=== PATIENT | female | born 1985 | race Caucasian/White ===

== ENCOUNTER 2022-07-17 08:50 | Outpatient (CLI) | payer OTHER, SELFPAY | END 2022-07-17 08:51 | disposition home or self-care (01) | PROVIDERS: PCP Physician Assistant Medical; Visit Provider Physician Assistant | DX: E66.9 Obesity, unspecified (principal) | CPT/HCPCS: 80053; 80061; 84443 ==

== ENCOUNTER 2022-10-26 19:19 | Emergency (ER) | payer OTHER, SELFPAY ==
[2022-10-26 19:27] VITALS: BP 127/86; PULSE 99; RESP 16; TEMP 36.5; O2SAT 99; BMI 30.9
--- NOTE | 2022-10-26 19:49 | ED.GENADULT ---
HPI - General Adult General Date Seen: 10/26/22 Chief complaint: Back Injury/Pain Stated complaint: fell 1 month ago, still having back pain Time Seen by Provider: 10/26/22 19:21 Source: patient Mode of arrival: ambulatory Limitations: no limitations History of Present Illness HPI narrative: Patient is a 37 year female with no pertinent medical problems presenting to emergency department for low back pain. She states 1 month ago she jumped from a diving board and a noncemented constant low back pain. She had CT scan done at that time showing indeterminate fracture. I told her to follow-up if she continues to have low back pain. She states she still feels a lot of low back pain that is mostly paraspinal. No midline pain. She came in wanting an MRI done of her back an EEG because she is having headaches and blurry vision. The headaches in vision issues 7 going on for over a year but she notices the vision issues have gotten worse since she hurt her back. She has not been taking anything for pain. Denies lightheadedness, dizziness, saddle anesthesia, loss of bowel or bladder control. Patient is able to walk to the bed without issues and not have too much trouble moving around in bed. Related Data Previous Rx's Medication Instructions Recorded etonogestrel 0.12 mg-ethinyl 1 vag ring vaginal Q4W #3 ea 10/18/22 estradiol 0.015 mg/24 hr vaginal ring (NuvaRing) cyclobenzaprine 10 mg tablet 10 mg PO TID #15 tabs 10/26/22 Allergies Allergy/AdvReac Type Severity Reaction Status Date / Time No Known Drug Allergies Allergy Verified 07/21/22 14:43 Review of Systems Narrative: Negative unless otherwise stated in HPI PFSH PFSH Medical History (Updated 10/26/22 @ 19:50 by Joel Ramírez DO) Hyperlipidemia ?E78.5 - Hyperlipidemia, unspecified (ICD-10) History of vaginal delivery History of use of contraceptive intrauterine device (IUD) ?Z92.0 - Personal history of contraception (ICD-10) Fatigue ?R53.83 - Other fatigue (ICD-10) Encounter for well woman exam with routine gynecological exam ?Z01.419 - Encounter for gynecological examination (general) (routine) without abnormal findings (ICD-10) History of urethral cyst ?Z87.448 - Personal history of other diseases of urinary system (ICD-10) History of basal cell carcinoma ?Z85.828 - Personal history of other malignant neoplasm of skin (ICD-10) History of abnormal cervical Pap smear ?Z87.42 - Personal history of other diseases of the female genital tract (ICD-10) Surgical History (Updated 07/17/22 @ 08:17 by Zainab Benjamin PA-C) History of wisdom tooth extraction ?K08.409 - Partial loss of teeth, unspecified cause, unspecified class (ICD-10) History of hand surgery ?Z98.890 - Other specified postprocedural states (ICD-10) History of D&C ?Z98.890 - Other specified postprocedural states (ICD-10) Family History (Updated 07/21/22 @ 14:46 by Pat Arcos) Father Diabetes Family/Other High cholesterol High blood pressure Thyroid disease Social History Smoking Status: Never smoker Exam Narrative: Exam Narrative: Const: Well-nourished, Well-developed, in mild distress Eyes: PERRL, no conjunctival injection, and symmetrical lids HENT: Atraumatic external nose and ears. Moist mucous membranes. MSK:Extremities w/o deformity, Normal Active ROM. No midline back tenderness. Tenderness noted to the left paraspinal muscles of the low back around L4 Skin: Warm, Dry. No rashes or lesions. Neuro: Normal Muscle tone, No focal neurological deficits. Psych: Awake, Alert, & Oriented x3. Appropriate mood and affect. Const: Vital Signs, click to edit/add: Vital Signs - 24 hr 10/26/22 19:27 Temperature 97.7 F Pulse Rate [Pulse Oximeter] 99 Respiratory Rate 16 Blood Pressure [Ri ght Upper Arm] 127/86 Pulse Oximetry 99 Oxygen Delivery Me thod Room Air Course Vital Signs Vital signs: Initial Vital Signs Temperature 97.7 F 10/26/22 19:27 Temperature Source Temporal Artery Scan 10/26/22 19:27 Pulse Rate 99 10/26/22 19:27 Respiratory Rate 16 10/26/22 19:27 Blood Pressure 127/86 10/26/22 19:27 Blood Pressure Mean 99 10/26/22 19:27 Blood Pressure Position Sitting 10/26/22 19:27 Pulse Oximetry 99 10/26/22 19:27 Oxygen Delivery Method Room Air 10/26/22 19:27 Vital Signs Temperature 97.7 F 10/26/22 19:27 Pulse Rate 99 10/26/22 19:27 Respiratory Rate 16 10/26/22 19:27 Blood Pressure 127/86 10/26/22 19:27 Pulse Oximetry 99 10/26/22 19:27 Oxygen Delivery Method Room Air 10/26/22 19:27 Temperature 97.7 F 10/26/22 19:27 Pulse Rate 99 10/26/22 19:27 Respiratory Rate 16 10/26/22 19:27 Blood Pressure 127/86 10/26/22 19:27 Pulse Oximetry 99 10/26/22 19:27 Oxygen Delivery Method Room Air 10/26/22 19:27 Medical Decision Making MDM Narrative Medical decision making narrative: Patient is a 37-year-old female presenting to the emergency department for low back pain. Symptoms have been gone for the past month since he jumped from a diving board. Pain is all paraspinal with no midline tenderness. Dull on the left side. Left side of the back does feel more tense than the right side. Patient once a MRI but I informed her we are unable to do that this time as she is not having red flag symptoms and this is not an emergent MRI. She is not having any red flag symptoms and cauda equina appears unlikely at this time. I symptoms of paraspinal and she is moving around in bed easily. She has not been taking any pain medication at home. She was also wants a EEG but I informed her we are unable to do that and her symptoms have been going on chronically and she can follow-up outpatient for that also. We will give her Flexeril to try and help with pain. She is agreeable follow-up neurology and the [facility]. Discharge Plan Discharge Clinical Impression: Lumbar radiculopathy Patient Disposition: Home, Self-Care Condition: Stable Instructions: Lower Back Exercises (ED) Additional Instructions: If you would like, follow-up with [facility] or another Neurology Clinic. We are not affiliated with any specific neurologist, you will have to call and make an appointment. The scheduling phone number listed on the website for [facility] is [phone]. You can follow-up with the [facility] for your low back pain. The appointment line is [phone]. Return for new or worsening symptoms. Take Tylenol ibuprofen for pain. Prescriptions: New cyclobenzaprine 10 mg tablet 10 mg PO TID Qty: 15 0RF No Action etonogestrel-ethinyl estradiol [NuvaRing] 0.12-0.015 mg/24 hr ring 1 vag ring vaginal Q4W Qty: 3 3RF Rx Instructions: leave in place for 3 weeks of a 4-week cycle Follow Up/Referrals: Katey Noonan PA-C [Primary Care Provider] - Stand Alone Forms: [facility] Info Instructions
== END 2022-10-26 20:04 | disposition home or self-care (01) ==
LOC: ED 20:02
PROVIDERS: Emergency Provider Student in an Organized Health Care Education/Training Program; PCP Physician Assistant Medical
DX: M54.16 Radiculopathy, lumbar region (principal)
CPT/HCPCS: 99282; 99283

== ENCOUNTER 2023-05-03 21:15 | Outpatient (REF) | payer OTHER, SELFPAY ==
[2023-05-03 21:32] LABS: Basophils Absolute Auto 0.11 K/uL (0.00-0.30); Basophils Percent Auto 1.1 % (0.0-3.0); Eosinophils Percent Auto 11.5 % (0.0-7.0); Hemoglobin* 13.5 gm/dL (12.0-16.0); Immature Granulocytes Abs Auto 0.05 K/uL (0.00-0.30); Immature Granulocytes Pct Auto 0.5 %; Lymphocytes Absolute Auto 2.37 K/uL (0.90-2.90); Lymphocytes Percent Auto 24.1 % (20-44); Mean Corpuscular HGB Conc 33 gm/dL (32-36); Mean Corpuscular Hemoglobin 31 pg (26-34); Mean Corpuscular Volume 93 fL (80-100); Monocytes Percent Auto 5.7 % (0.0-11.0); Neutrophils Absolute Auto 5.61 K/uL (1.7-7.0); Neutrophils Percent Auto 57.1 % (42.0-72.0); Platelet Count* 422 K/uL (140-440); RDW Coefficient of Variation % 12.6 % (11.5-15.5); Red Blood Count 4.43 m/uL (4.00-5.20); White Blood Count* 9.83 K/uL (4.50-11.00)
[2023-05-03 21:50] LABS: Slide Review Reflex No
[2023-05-03 21:59] LABS: Hemoglobin A1C* 5.1 % (0-5.6)
[2023-05-03 22:01] LABS: Albumin* 4.3 g/dL (3.3-5.0); Chloride* 106 mmol/L (96-114)
[2023-05-03 22:02] LABS: Potassium* 3.7 mmol/L (3.6-5.1); Sodium* 138 mmol/L (135-149)
[2023-05-03 22:04] LABS: Alanine Aminotransferase* 22 U/L (4-35); Alkaline Phosphatase* 72 U/L (40-150); Anion Gap 8 mEq/L (7-15); Aspartate Amino Transferase* 20 U/L (12-35); Bilirubin Total* 0.3 mg/dL (0.1-1.5); Blood Urea Nitrogen* 12 mg/dL (5-24); Carbon Dioxide* 24 mmol/L (20-32); Cholesterol* 205 mg/dL (90-199); Creatinine* 0.5 mg/dL (0.5-1.5); Estimated Glomerular Filt Rate 123 ml/min; Glucose* 93 mg/dL (60-115); Total Protein* 6.8 g/dL (6.0-8.3)
[2023-05-03 22:05] LABS: Calcium* 9.3 mg/dL (8.4-10.6); HDL Cholesterol* 77 mg/dL (>=50); LDL Cholesterol Calculated 96 mg/dL (<100); Triglycerides* 159 mg/dL (40-149)
[2023-05-03 22:21] LABS: Thyroid Stimulating Hormone* 0.986 uIU/mL (0.270-4.20)
[2023-05-03 22:40] LABS: Vitamin B12* 816 pg/mL (243-894)
[2023-05-05 08:55] LABS: Folate, Serum 11.5 ng/mL (>=5.9)
== END 2023-05-03 21:16 | disposition home or self-care (01) ==
LOC: NPINS 21:15
PROVIDERS: PCP Physician Assistant Medical; Visit Provider Physician Assistant Medical
DX: E66.3 Overweight (principal); E34.9 Endocrine disorder, unspecified; E56.9 Vitamin deficiency, unspecified
CPT/HCPCS: 80053; 80061; 82607; 82746; 83036; 84443; 85025

== ENCOUNTER 2023-11-05 09:17 | Outpatient (CLI) | payer OTHER, SELFPAY ==
[2023-11-10 09:08] LABS: HPV Source Cervix; HPV, High Risk by TMA Not Detected
== END 2023-11-05 09:18 | disposition home or self-care (01) ==
PROVIDERS: PCP Physician Assistant Medical; Visit Provider Physician Assistant
DX: Z12.4 Encounter for screening for malignant neoplasm of cervix (principal)
CPT/HCPCS: 87624; 87625; 88141; 88142